=== PATIENT | male | born 1970 | race Two or more races ===

== ENCOUNTER 2016-11-10 16:33 | Emergency (ER) | payer OTHER ==
[~2016-11-10] VITALS: Ht 175.3 cm; Wt 81.6 kg
[2016-11-10 17:44] VITALS: BP 85/57
[2016-11-10 17:47] LABS: Basophils # (auto) 0 uL; Basophils % (auto) 0.3 % (0.0-2.0); Eosinophils # (auto) 0.1 uL; Eosinophils % (auto) 1.2 % (0.0-7.0); Hematocrit 29.3 % (41.0-53.0); Hemoglobin 9.3 g/dL (13.5-17.5); Lymphocytes % (auto) 41.7 % (10.0-50.0); Mean Corpuscular Hemoglobin 29.8 pg (28.0-32.0); Mean Corpuscular Hgb Conc. 31.8 g/dL (32.0-36.0); Mean Corpuscular Volume 93.6 fL (80.0-100.0); Monocytes # (auto) 0.2 uL; Monocytes % (auto) 3.4 % (0.0-12.0); Neutrophils # (auto) 3.9 uL; Neutrophils % (auto) 53.4 % (37.0-80.0); Platelet Count (auto) 128 10^3/uL (140-450); Red Cell Distribution Width 13.2 % (11.6-16.0); White Blood Cell 7.3 10^3/uL (4.4-10.8)
[2016-11-10 18:06] LABS: Albumin 2.4 g/dL (3.4-5.0); BUN/Creatinine Ratio 12.4
[2016-11-10 18:09] LABS: Bilirubin, Total 0.3 mg/dL (0.2-1.0); Total Protein 4.4 g/dL (6.4-8.2)
[2016-11-10] MEDS ORDERED: cefTRIAXone 1GM/50ML D5W 50 ML IV ONE (18:15)
[2016-11-10 18:30] LABS: Urine Bilirubin Negative (Negative); Urine Blood TRACE /uL (Negative); Urine Color Yellow (Yellow); Urine Glucose Normal (Normal); Urine Ketone Negative (Negative); Urine Mucus FEW (None Seen); Urine Nitrite Negative (Negative); Urine RBC 26 /hpf (0 - 3); Urine Sperm PRESENT /hpf (None Seen); Urine Urobilinogen Normal (Negative); Urine pH 5.5 (5.0-8.0)
[2016-11-10 18:57] LABS: INR 1.53 (0.9-1.15); Prothrombin Time 15.8 sec (9.37-12.3)
[2016-11-10 18:59] LABS: Partial Thromboplastin Time 76.3 sec (22.64-33.71)
[2016-11-10 19:15] VITALS: BP 45/15
[2016-11-10] MEDS ORDERED: PHYTONADIONE (VIT K)10 MG/ML 1ML VIAL SUBCUT ONE (19:15)
== END 2016-11-10 19:26 | disposition short-term general hospital (02) ==
LOC: ER 16:35 → EDBD 16:35 → ER 19:26
DX: I46.9 Cardiac arrest, cause unspecified (principal); S02.91XA Unspecified fracture of skull, initial encounter for closed fracture; S02.0XXA Fracture of vault of skull, initial encounter for closed fracture; W13.2XXA Fall from, out of or through roof, initial encounter; Y93.89 Activity, other specified; Y99.8 Other external cause status; Y92.89 Other specified places as the place of occurrence of the external cause
CPT/HCPCS: 36415; 36430; 51702; 70260; 71010; 80053; 80320; 81001; 82962; 85025; 85610; 85730; 86850; 86900; 86901; 86920; 92950; 93005; 96372; 99291; 99292; G0434; J7030; P9016